=== PATIENT | male | born 1980 | race Caucasian/White ===

== ENCOUNTER 2020-09-01 16:49 | Inpatient (IN) | payer BC, SELFPAY ==
[2020-09-01] MEDS ORDERED: Ketamine 50 MG/ML (10ML VIAL) ONE (17:03)
[2020-09-01] MEDS ORDERED: Boostrix 0.5 ML (Tdap) VIAL ONE (17:03)
[2020-09-01] MEDS ORDERED: Tranexamic Acid 1,000 MG/10 ML VIAL ONE (17:03)
[2020-09-01] MEDS ORDERED: Calcium Chloride 1 GM/10 ML Abboject SYRINGE ONE (17:03)
[2020-09-01] MEDS ORDERED: Fentanyl 100 MCG/2 ML VIAL ONE (17:08)
[2020-09-01] MEDS ORDERED: Norepinephrine 4 MG/4 ML VIAL ONE (17:09)
[2020-09-01] MEDS ORDERED: Phenylephrine 10 MG/ML VIAL ONE (17:09)
[2020-09-01] MEDS ORDERED: Midazolam HCl 5 mg/5 ml Vial ONE (17:09)
[2020-09-01 17:12] LABS: Hemoglobin 11.1 g/dL (14.0-18.0); Mean Corpuscular Hemoglobin 30.5 pg (27.0-31.0); Mean Corpuscular Volume 92.2 fL (78.0-98.0); Mean Platelet Volume 7.3 fL (7.4-10.4); Platelet Count 197 thou/uL (130-400); RBC Distribution Width 12.4 % (11.5-14.5); Red Blood Cell (RBC) Count 3.66 mill/uL (4.70-6.10); White Blood Cell (WBC) Count 21.4 thou/uL (4.8-10.8)
[2020-09-01 17:19] LABS: INR-International Normal Ratio 1.2; PTT 25.7 sec (22.9-36.1); Prothrombin Time 15.6 sec (12.0-14.7)
[2020-09-01] MEDS ORDERED: PHENYLEPHRINE-NS 100 MCG/ML 10 ML SYRINGE ONE (17:22)
[2020-09-01] MEDS ORDERED: Rocuronium Bromide 10 MG/ML (10ML VIAL) ONE (17:22)
[2020-09-01 17:26] LABS: Band 4 % (5-11); Eosinophils 3 % (0-10); Lymphocytes 15 % (21-51); MDiff Complete? YES; Monocytes 7 % (0-10); Neutrophil 71 % (42-75); Platelet Morphology Comment Appears Adequate; RBC Morphology Normal
[2020-09-01 17:32] LABS: ALT (SGPT) 11 U/L (8-55); AST (SGOT) 23 U/L (5-34); Alkaline Phosphatase 39 U/L (40-110); Anion Gap 15 mmol/L (10-20); BUN (Urea Nitrogen) 19 mg/dL (8.9-20.6); Bilirubin, Total 0.4 mg/dL (0.2-1.2); Calc. Creatinine Clearance 0 mL/min (70-130); Carbon Dioxide 19 mmol/L (22-29); Chloride 109 mmol/L (98-107); Globulin 1.8 g/dL (2.4-3.5); Glucose 200 mg/dL (70-105); Potassium 4.2 mmol/L (3.5-5.1); Protein, Total 4.8 g/dL (6.0-8.3); Sodium 139 mmol/L (136-145)
[2020-09-01] MEDS ORDERED: Albumin 5% 500 ML ONE (18:21)
[2020-09-01] MEDS ORDERED: Dextrose 5% in Water 1,000 ML IV PRN (19:40)
[2020-09-01] MEDS ORDERED: Dextrose 50% Abboject 50 ML SYRINGE SLOW IVP PRN (19:40)
[2020-09-01] MEDS ORDERED: Ondansetron PF 4 MG/2 ML Vial IVP PRN ×2 (19:45→19:54)
[2020-09-01] MEDS ORDERED: Ventilator Sedation Protocol 1 EACH FS SCH (20:00)
[2020-09-01 21:00] LABS: Actual Bicarbonate (HCO3a) 21.5 mEq/L (22-28); Analyzer IN Cardio ER; Base Excess (BEa) -4.3 mEq/L (-2.0 to +3.0); CO2 Tension 42.6 mmHg (35.0-45.0); Calcium, Ionized (arterial) 1.15 mmol/L (1.12-1.30); Carboxyhemoglobin (COHb) 0.3 gm% (0.0-3.0); Hemoglobin (Hb) 10.6 g/dL (14.0-18.0); Potassium - ABG Lab 4.35 mmol/L (3.70-5.30); pH, Arterial 7.32 (7.35-7.45)
[2020-09-01 21:04] LABS: Puncture Site Arterial Line
[2020-09-01] MEDS ORDERED: Fentanyl CADD 100 ML ONE (21:08)
[2020-09-01] MEDS: Propofol 1,000 MG/100 ML VIAL IV PRN (21:11)
[2020-09-01] MEDS: Fentanyl CADD 100 ML IV SCH (21:13)
[2020-09-01] MEDS: Lactated Ringer's 1,000 ML IV SCH (21:13)
[2020-09-01] MEDS ORDERED: Fentanyl BOLUS 250 ML IVPB PRN (21:15)
[2020-09-01] MEDS ORDERED: Lorazepam 2 MG/ML VIAL SLOW IVP PRN (21:15)
[2020-09-01] MEDS ORDERED: DISCONTINUE PREVIOUS NARCOTIC PAIN MEDICATIONS AND BENZODIAZEPINES FS SCH (21:15)
[2020-09-01] MEDS ORDERED: Propofol BOLUS 1,000 MG/100 ML VIAL IV PRN (21:15)
[2020-09-01] MEDS ORDERED: Morphine 2 MG/ML VIAL SLOW IVP PRN (21:15)
[2020-09-01 21:26] LABS: Lactic Acid 2.4 mmol/L (0.5-2.2)
[2020-09-01] MEDS ORDERED: CEFAZOLIN 1 GM VIAL SLOW IVP SCH (22:00)
[2020-09-01 22:18] LABS: SARS-CoV-2 NAA Rapid Test Not Detected (NotDetected)
[2020-09-01] MEDS: ceFAZolin 1 GM/D5W 1 GM in Premix Bag 1 BAG IVPB SCH (23:02)
[2020-09-01] MEDS ORDERED: Lactated Ringer's 500 ML IV PRN (23:28)
[2020-09-01] MEDS ORDERED: Sodium Bicarbonate Tab 325 MG TAB PER TUBE PRN (23:45)
[2020-09-01] MEDS ORDERED: Pancrelipase DR 12,000 1 CAP FS PRN (23:45)
[2020-09-02 00:26] LABS: Hemoglobin 10.1 g/dL (14.0-18.0); Mean Corpuscular HGB CONC 34.6 g/dL (32.0-36.0); Mean Corpuscular Hemoglobin 30.6 pg (27.0-31.0); Mean Corpuscular Volume 88.6 fL (78.0-98.0); Mean Platelet Volume 7.7 fL (7.4-10.4); Platelet Count 132 thou/uL (130-400); RBC Distribution Width 13.9 % (11.5-14.5); Red Blood Cell (RBC) Count 3.31 mill/uL (4.70-6.10); White Blood Cell (WBC) Count 5.5 thou/uL (4.8-10.8)
[2020-09-02 04:30] LABS: PTT 27.9 sec (22.9-36.1)
[2020-09-02 04:31] LABS: Prothrombin Time 13.4 sec (12.0-14.7)
[2020-09-02 04:42] LABS: Band 21 % (5-11); Hemoglobin 10.1 g/dL (14.0-18.0); Hypochromia SLIGHT = 6-15 cells (100X) (0-5/hpf); Lymphocytes 9 % (21-51); MDiff Complete? YES; Mean Corpuscular Hemoglobin 30.8 pg (27.0-31.0); Mean Platelet Volume 8.3 fL (7.4-10.4); Monocytes 1 % (0-10); Neutrophil 69 % (42-75); Platelet Count 131 thou/uL (130-400); Platelet Morphology Comment Appears Adequate; RBC Distribution Width 14.2 % (11.5-14.5); Red Blood Cell (RBC) Count 3.26 mill/uL (4.70-6.10)
[2020-09-02 04:45] LABS: Anion Gap 9 mmol/L (10-20); BUN (Urea Nitrogen) 23 mg/dL (8.9-20.6); Calc. Creatinine Clearance 70 mL/min (70-130); Calcium 8.1 mg/dL (7.8-10.44); Carbon Dioxide 24 mmol/L (22-29); Chloride 110 mmol/L (98-107); Glucose 131 mg/dL (70-105); Magnesium 1.6 mg/dL (1.6-2.6); Phosphorus 3.8 mg/dL (2.3-4.7); Sodium 138 mmol/L (136-145)
[2020-09-02] MEDS: ceFAZolin 1 GM/D5W 1 GM in Premix Bag 1 BAG IVPB SCH ×3 (05:02→21:06)
[2020-09-02] MEDS: Lactated Ringer's 1,000 ML IV SCH ×3 (05:02→21:10)
[2020-09-02] MEDS: Propofol 1,000 MG/100 ML VIAL IV PRN (05:02)
[2020-09-02 07:13] LABS: Actual Bicarbonate (HCO3a) 22.8 mEq/L (22-28); Base Excess (BEa) -2.4 mEq/L (-2.0 to +3.0); CO2 Tension 40.7 mmHg (35.0-45.0); Calcium, Ionized (arterial) 1.02 mmol/L (1.12-1.30); Carboxyhemoglobin (COHb) 0.3 gm% (0.0-3.0); Hemoglobin (Hb) 9.6 g/dL (14.0-18.0); O2 Tension (PaO2), arterial 203.9 mmHg (80.0-100.0); Potassium - ABG Lab 4.88 mmol/L (3.70-5.30); Puncture Site Arterial Line; pH, Arterial 7.37 (7.35-7.45)
[2020-09-02 07:15] LABS: ALV-art Gradient 66.075 mmHg (0-20)
[2020-09-02] MEDS ORDERED: Magnesium 2 GM/50 ML 2 GM in Premix Bag 1 BAG IVPB SCH (07:15)
[2020-09-02] MEDS: Famotidine/PF 20 mg/2ml Vial SLOW IVP SCH (08:41)
[2020-09-02] MEDS ORDERED: Calcium Chloride 1 GM/10 ML Abboject SYRINGE IVP SCH (08:45)
[2020-09-02] MEDS ORDERED: Midazolam HCl 2 mg/2 ml Vial SLOW IVP PRN ×2 (09:57→09:59)
[2020-09-02 10:16] LABS: Hemoglobin 9.1 g/dL (14.0-18.0); Mean Corpuscular HGB CONC 33.4 g/dL (32.0-36.0); Mean Corpuscular Hemoglobin 29.6 pg (27.0-31.0); Mean Corpuscular Volume 88.7 fL (78.0-98.0); Mean Platelet Volume 8.1 fL (7.4-10.4); Platelet Count 123 thou/uL (130-400); RBC Distribution Width 14.2 % (11.5-14.5); Red Blood Cell (RBC) Count 3.09 mill/uL (4.70-6.10)
[2020-09-02 10:22] LABS: Actual Bicarbonate (HCO3a) 19.9 mEq/L (22-28); Analyzer IN Cardio OR; Base Excess (BEa) -6.3 mEq/L (-2.0 to +3.0); CO2 Tension 42.8 mmHg (35.0-45.0); Calcium, Ionized (arterial) 0.95 mmol/L (1.12-1.30); Carboxyhemoglobin (COHb) 0.3 gm% (0.0-3.0); Hemoglobin (Hb) 8.2 g/dL (14.0-18.0); O2 Tension (PaO2), arterial 477.2 mmHg (80.0-100.0); Potassium - ABG Lab 4.01 mmol/L (3.70-5.30); pH, Arterial 7.29 (7.35-7.45)
[2020-09-02 10:22] LABS: Analyzer IN Cardio OR; Base Excess (BEa) -6.1 mEq/L (-2.0 to +3.0); CO2 Tension 49.4 mmHg (35.0-45.0); Calcium, Ionized (arterial) 1.05 mmol/L (1.12-1.30); Carboxyhemoglobin (COHb) 0.5 gm% (0.0-3.0); Hemoglobin (Hb) 8.6 g/dL (14.0-18.0); Potassium - ABG Lab 6.12 mmol/L (3.70-5.30)
[2020-09-02 10:23] LABS: Puncture Site Arterial Line
[2020-09-02 10:27] LABS: pH, Arterial 7.25 (7.35-7.45)
[2020-09-02 10:28] LABS: O2 Tension (PaO2), arterial 571.3 mmHg (80.0-100.0); Puncture Site Arterial Line
[2020-09-02] MEDS: Fentanyl CADD 100 ML IV SCH (15:26)
[2020-09-02] MEDS ORDERED: Acetaminophen 650 MG Suppository PR PRN (18:15)
[2020-09-03 04:27] LABS: Hemoglobin 9.4 g/dL (14.0-18.0); Mean Corpuscular Hemoglobin 31.5 pg (27.0-31.0); Mean Platelet Volume 8.2 fL (7.4-10.4); Platelet Count 131 thou/uL (130-400); RBC Distribution Width 13.9 % (11.5-14.5); Red Blood Cell (RBC) Count 2.99 mill/uL (4.70-6.10)
[2020-09-03 05:00] LABS: ALT (SGPT) 12 U/L (8-55); AST (SGOT) 49 U/L (5-34); Albumin 2.7 g/dL (3.5-5.0); Alkaline Phosphatase 37 U/L (40-110); Anion Gap 10 mmol/L (10-20); BUN (Urea Nitrogen) 22 mg/dL (8.9-20.6); Band 1 % (5-11); Bilirubin, Total 1.6 mg/dL (0.2-1.2); Calc. Creatinine Clearance 64 mL/min (70-130); Calcium 7.9 mg/dL (7.8-10.44); Carbon Dioxide 24 mmol/L (22-29); Chloride 105 mmol/L (98-107); Globulin 2.3 g/dL (2.4-3.5); Glucose 109 mg/dL (70-105); Lymphocytes 10 % (21-51); MDiff Complete? YES; Magnesium 1.8 mg/dL (1.6-2.6); Metamyelocyte 1 % (0-0); Monocytes 10 % (0-10); Neutrophil 77 % (42-75); Phosphorus 2.6 mg/dL (2.3-4.7); Platelet Morphology Comment Appears Adequate; Reactive Lymphocytes 1 % (0-10); Sodium 134 mmol/L (136-145)
[2020-09-03] MEDS ORDERED: Morphine 4 MG/ML VIAL SLOW IVP PRN (05:23)
[2020-09-03] MEDS: ceFAZolin 1 GM/D5W 1 GM in Premix Bag 1 BAG IVPB SCH ×3 (05:37→21:44)
[2020-09-03] MEDS ORDERED: Fentanyl CADD 100 ML ONE (06:35)
[2020-09-03] MEDS: Lactated Ringer's 1,000 ML IV SCH ×3 (06:41→21:44)
[2020-09-03] MEDS ORDERED: Magnesium Sulfate 2 GM in Sodium Chloride 0.9% 100 ML IVPB SCH (07:15)
[2020-09-03] MEDS: Famotidine/PF 20 mg/2ml Vial SLOW IVP SCH (08:05)
[2020-09-03] MEDS ORDERED: Fentanyl 100 MCG/2 ML VIAL ONE ×2 (08:46→11:31)
[2020-09-03] MEDS ORDERED: Famotidine/PF 20 mg/2ml Vial ONE (08:46)
[2020-09-03] MEDS ORDERED: Midazolam HCl 2 mg/2 ml Vial ONE (08:46)
[2020-09-03] MEDS ORDERED: SUGAMMADEX SODIUM 500 MG/5 ML VIAL ONE (08:46)
[2020-09-03] MEDS ORDERED: Rocuronium Bromide 10 MG/ML (10ML VIAL) ONE (08:54)
[2020-09-03] MEDS ORDERED: Dexamethasone 20 MG/5 ML VIAL ONE (08:54)
[2020-09-03] MEDS ORDERED: PHENYLEPHRINE-NS 100 MCG/ML 10 ML SYRINGE ONE (08:54)
[2020-09-03] MEDS ORDERED: Metoclopramide HCl 10 MG/2 ML VIAL ONE (08:54)
[2020-09-03] MEDS ORDERED: Ondansetron PF 4 MG/2 ML Vial ONE (08:54)
[2020-09-03] MEDS ORDERED: diphenhydrAMINE 25 MG CAP PO PRN (11:57)
[2020-09-03] MEDS ORDERED: Naloxone HCl 0.4 mg/ml Vial IV PRN (11:57)
[2020-09-03] MEDS ORDERED: diphenhydrAMINE 50 MG/ML VIAL IM PRN (11:57)
[2020-09-03] MEDS ORDERED: Promethazine HCl 25 MG/ML VIAL IM PRN (11:57)
[2020-09-03] MEDS ORDERED: diphenhydrAMINE 50 MG/ML VIAL IVP PRN (11:57)
[2020-09-03] MEDS ORDERED: Communication Order-Pharmacy FS SCH (12:00)
[2020-09-04] MEDS: Lactated Ringer's 1,000 ML IV SCH (05:31)
[2020-09-04] MEDS: ceFAZolin 1 GM/D5W 1 GM in Premix Bag 1 BAG IVPB SCH ×3 (05:31→22:03)
[2020-09-04] MEDS ORDERED: Magnesium Sulfate 2 GM in Sodium Chloride 0.9% 100 ML IVPB SCH (06:45)
[2020-09-04 07:21] LABS: Hemoglobin 8.6 g/dL (14.0-18.0); Mean Corpuscular HGB CONC 32.8 g/dL (32.0-36.0); Mean Corpuscular Hemoglobin 30.3 pg (27.0-31.0); Mean Corpuscular Volume 92.4 fL (78.0-98.0); Mean Platelet Volume 8.9 fL (7.4-10.4); Platelet Count 175 thou/uL (130-400); RBC Distribution Width 13.9 % (11.5-14.5); Red Blood Cell (RBC) Count 2.82 mill/uL (4.70-6.10); White Blood Cell (WBC) Count 13.5 thou/uL (4.8-10.8)
[2020-09-04 07:25] LABS: Phosphorus 2.3 mg/dL (2.3-4.7)
[2020-09-04 07:34] LABS: Anion Gap 11 mmol/L (10-20); BUN (Urea Nitrogen) 24 mg/dL (8.9-20.6); Calc. Creatinine Clearance 60 mL/min (70-130); Calcium 7.8 mg/dL (7.8-10.44); Carbon Dioxide 23 mmol/L (22-29); Chloride 104 mmol/L (98-107); Glucose 131 mg/dL (70-105); Magnesium 2.2 mg/dL (1.6-2.6); Potassium 5.1 mmol/L (3.5-5.1); Sodium 133 mmol/L (136-145)
[2020-09-04 07:46] LABS: Band 33 % (5-11); Lymphocytes 3 % (21-51); MDiff Complete? YES; Monocytes 7 % (0-10); Neutrophil 57 % (42-75); Platelet Morphology Comment Appears Adequate; Polychromasia SLIGHT = 2-3 cells (100X) (0-2/hpf)
[2020-09-04] MEDS: Famotidine 20 MG TAB PER TUBE SCH (07:58)
[2020-09-04] MEDS ORDERED: Sodium Bicarbonate 150 MEQ in Dextrose 5% in Water 1,000 ML IV SCH (12:45)
[2020-09-05] MEDS: HYDROmorphone 10 mg/100 ml CADD IVPB PRN (02:56)
[2020-09-05 06:18] LABS: Band 21 % (5-11); Hemoglobin 7.6 g/dL (14.0-18.0); Lymphocytes 5 % (21-51); MDiff Complete? YES; Mean Corpuscular HGB CONC 31.8 g/dL (32.0-36.0); Mean Corpuscular Hemoglobin 29.3 pg (27.0-31.0); Mean Corpuscular Volume 92.2 fL (78.0-98.0); Mean Platelet Volume 8.4 fL (7.4-10.4); Monocytes 6 % (0-10); Neutrophil 68 % (42-75); Nucleated RBC 1 % (0); Platelet Count 205 thou/uL (130-400); Platelet Morphology Comment Appears Adequate; RBC Distribution Width 13.9 % (11.5-14.5); White Blood Cell (WBC) Count 12.7 thou/uL (4.8-10.8)
[2020-09-05 06:28] LABS: Anion Gap 12 mmol/L (10-20); BUN (Urea Nitrogen) 27 mg/dL (8.9-20.6); Calc. Creatinine Clearance 68 mL/min (70-130); Calcium 7.7 mg/dL (7.8-10.44); Carbon Dioxide 27 mmol/L (22-29); Chloride 102 mmol/L (98-107); Glucose 116 mg/dL (70-105); Magnesium 2.5 mg/dL (1.6-2.6); Phosphorus 2.4 mg/dL (2.3-4.7); Potassium 4.4 mmol/L (3.5-5.1); Sodium 137 mmol/L (136-145)
[2020-09-05] MEDS ORDERED: Lactated Ringer's 1,000 ML IV SCH ×2 (07:30→07:45)
[2020-09-05] MEDS ORDERED: Sodium Chloride 0.9% 1,000 ML IV SCH (07:45)
[2020-09-05] MEDS: Sodium Chloride 0.9% 1,000 ML IV SCH ×2 (08:16→18:16)
[2020-09-05] MEDS: Famotidine 20 MG TAB PER TUBE SCH (08:16)
[2020-09-06] MEDS: Sodium Chloride 0.9% 1,000 ML IV SCH ×2 (03:46→14:03)
[2020-09-06 06:20] LABS: Anion Gap 10 mmol/L (10-20); BUN (Urea Nitrogen) 34 mg/dL (8.9-20.6); Calc. Creatinine Clearance 81 mL/min (70-130); Calcium 8.2 mg/dL (7.8-10.44); Carbon Dioxide 29 mmol/L (22-29); Chloride 105 mmol/L (98-107); Glucose 121 mg/dL (70-105); Magnesium 2.5 mg/dL (1.6-2.6); Phosphorus 2.3 mg/dL (2.3-4.7); Potassium 3.7 mmol/L (3.5-5.1); Sodium 140 mmol/L (136-145)
[2020-09-06 07:25] LABS: Band 22 % (5-11); Hemoglobin 7.9 g/dL (14.0-18.0); Lymphocytes 10 % (21-51); MDiff Complete? YES; Mean Corpuscular HGB CONC 31.2 g/dL (32.0-36.0); Mean Corpuscular Volume 93.1 fL (78.0-98.0); Mean Platelet Volume 7.6 fL (7.4-10.4); Monocytes 7 % (0-10); Neutrophil 61 % (42-75); Platelet Count 255 thou/uL (130-400); RBC Distribution Width 13.8 % (11.5-14.5); Red Blood Cell (RBC) Count 2.73 mill/uL (4.70-6.10); White Blood Cell (WBC) Count 13.8 thou/uL (4.8-10.8)
[2020-09-06] MEDS: Famotidine 20 MG TAB PER TUBE SCH (08:07)
[2020-09-06] MEDS: HYDROmorphone 10 mg/100 ml CADD IVPB PRN (08:08)
[2020-09-06] MEDS ORDERED: Pantoprazole 40 MG VIAL IVP SCH (10:15)
[2020-09-06] MEDS: Ondansetron PF 4 MG/2 ML Vial IVP PRN ×2 (11:18→20:09)
[2020-09-06] MEDS: Acetaminophen 325 MG TAB PO SCH ×3 (12:12→23:29)
[2020-09-06] MEDS: traMADol HCl 50 MG TAB PO SCH ×3 (12:13→23:28)
[2020-09-06 16:39] LABS: Lipase-Fluid 31101 U/L (.)
[2020-09-06] MEDS ORDERED: Potassium Chloride 10 MEQ in Dextrose 5%-Lactated Ringers 1,000 ML IV SCH (18:30)
[2020-09-06] MEDS: Cyclobenzaprine 10 MG TAB PO PRN (20:08)
[2020-09-06] MEDS: Pantoprazole 40 MG VIAL IVP SCH (20:09)
[2020-09-07] MEDS: traMADol HCl 50 MG TAB PO SCH ×4 (05:30→23:47)
[2020-09-07] MEDS: Acetaminophen 325 MG TAB PO SCH ×4 (05:30→23:46)
[2020-09-07] MEDS: Pantoprazole 40 MG VIAL IVP SCH ×2 (07:52→21:52)
[2020-09-07] MEDS ORDERED: Pantoprazole 40 MG VIAL IVP SCH (09:00)
[2020-09-07] MEDS: Ondansetron PF 4 MG/2 ML Vial IVP PRN (21:52)
[2020-09-07] MEDS: Cyclobenzaprine 10 MG TAB PO PRN (21:52)
[2020-09-08] MEDS: traMADol HCl 50 MG TAB PO SCH ×4 (05:33→23:18)
[2020-09-08] MEDS: Acetaminophen 325 MG TAB PO SCH ×4 (05:37→23:17)
[2020-09-08] MEDS: Pantoprazole 40 MG VIAL IVP SCH ×2 (08:45→20:39)
[2020-09-08 11:45] LABS: Bacteria/HPF None Seen HPF (None Seen); Bilirubin Negative (Negative); Blood, Urine 1+ (Negative); Clarity Clear (Clear); Glucose, Urine (Dipstick) Normal (Negative); Ketone, Urine 10 mg/dL (Negative); Leukocyte Negative Leu/uL (Negative); Nitrite Negative (Negative); Protein, Urine (Dipstick) 100 mg/dL (Neg-Trace); RBC/HPF 0-3 HPF (0-3); Specific Gravity, Urine 1.016 (1.002-1.036); Squamous Epithelial None Seen HPF (0-3); Urobilinogen 6 mg/dL (Less than 2); WBC/HPF 0-3 HPF (0-3)
[2020-09-08 11:52] LABS: Urine Culture Reflex No No
[2020-09-08] MEDS ORDERED: Senokot 8.6 MG TAB PO PRN (12:15)
[2020-09-09] MEDS: Acetaminophen 325 MG TAB PO SCH ×4 (05:24→23:49)
[2020-09-09] MEDS: traMADol HCl 50 MG TAB PO SCH ×4 (05:25→23:50)
[2020-09-09 06:01] LABS: Anion Gap 12 mmol/L (10-20); BUN (Urea Nitrogen) 22 mg/dL (8.9-20.6); Calc. Creatinine Clearance 78 mL/min (70-130); Calcium 7.5 mg/dL (7.8-10.44); Carbon Dioxide 24 mmol/L (22-29); Chloride 97 mmol/L (98-107); Glucose 99 mg/dL (70-105); Magnesium 1.8 mg/dL (1.6-2.6); Phosphorus 2.8 mg/dL (2.3-4.7); Sodium 129 mmol/L (136-145)
[2020-09-09] MEDS ORDERED: Magnesium 2 GM/50 ML 2 GM in Premix Bag 1 BAG IVPB SCH (08:00)
[2020-09-09] MEDS: Pantoprazole 40 MG VIAL IVP SCH ×2 (08:38→20:32)
[2020-09-09] MEDS ORDERED: Sodium Chloride 0.9% 1,000 ML IV SCH (08:45)
[2020-09-10] MEDS: Acetaminophen 325 MG TAB PO SCH ×4 (05:41→23:29)
[2020-09-10] MEDS: traMADol HCl 50 MG TAB PO SCH ×4 (05:42→23:29)
[2020-09-10 06:21] LABS: ALT (SGPT) 10 U/L (8-55); AST (SGOT) 45 U/L (5-34); Albumin 2.2 g/dL (3.5-5.0); Alkaline Phosphatase 245 U/L (40-110); Anion Gap 13 mmol/L (10-20); BUN (Urea Nitrogen) 20 mg/dL (8.9-20.6); Bilirubin, Total 1.5 mg/dL (0.2-1.2); Calc. Creatinine Clearance 79 mL/min (70-130); Calcium 7.6 mg/dL (7.8-10.44); Carbon Dioxide 23 mmol/L (22-29); Chloride 96 mmol/L (98-107); Glucose 108 mg/dL (70-105); Potassium 3.8 mmol/L (3.5-5.1); Protein, Total 5.2 g/dL (6.0-8.3); Sodium 128 mmol/L (136-145)
[2020-09-10] MEDS: Pantoprazole 40 MG VIAL IVP SCH ×2 (09:25→20:04)
[2020-09-10 10:07] LABS: Band 3 % (5-11); Hemoglobin 6.7 g/dL (14.0-18.0); Lymphocytes 5 % (21-51); MDiff Complete? YES; Mean Corpuscular HGB CONC 31.8 g/dL (32.0-36.0); Mean Corpuscular Hemoglobin 29.3 pg (27.0-31.0); Mean Platelet Volume 7.3 fL (7.4-10.4); Monocytes 10 % (0-10); Neutrophil 82 % (42-75); Platelet Count 615 thou/uL (130-400); Platelet Morphology Comment Appears Increased; Polychromasia SLIGHT = 2-3 cells (100X) (0-2/hpf); RBC Distribution Width 13.7 % (11.5-14.5); Red Blood Cell (RBC) Count 2.27 mill/uL (4.70-6.10); White Blood Cell (WBC) Count 22.3 thou/uL (4.8-10.8)
[2020-09-10] MEDS: traMADol HCl 50 MG TAB PO PRN (18:48)
[2020-09-10] MEDS: Cyclobenzaprine 10 MG TAB PO PRN (20:12)
[2020-09-11] MEDS: traMADol HCl 50 MG TAB PO SCH ×4 (05:37→23:32)
[2020-09-11] MEDS: Acetaminophen 325 MG TAB PO SCH ×4 (05:37→23:31)
[2020-09-11 08:36] LABS: Hemoglobin 6.4 g/dL (14.0-18.0); Mean Corpuscular HGB CONC 31.9 g/dL (32.0-36.0); Mean Corpuscular Hemoglobin 29.2 pg (27.0-31.0); Mean Corpuscular Volume 91.6 fL (78.0-98.0); Mean Platelet Volume 7.2 fL (7.4-10.4); Platelet Count 762 thou/uL (130-400); RBC Distribution Width 14.1 % (11.5-14.5); White Blood Cell (WBC) Count 22.9 thou/uL (4.8-10.8)
[2020-09-11] MEDS: Pantoprazole 40 MG VIAL IVP SCH ×2 (08:38→20:47)
[2020-09-11 08:51] LABS: Anion Gap 12 mmol/L (10-20); BUN (Urea Nitrogen) 17 mg/dL (8.9-20.6); Calc. Creatinine Clearance 82 mL/min (70-130); Calcium 7.8 mg/dL (7.8-10.44); Carbon Dioxide 26 mmol/L (22-29); Chloride 95 mmol/L (98-107); Glucose 96 mg/dL (70-105); Magnesium 1.9 mg/dL (1.6-2.6); Phosphorus 3.4 mg/dL (2.3-4.7); Sodium 129 mmol/L (136-145)
[2020-09-11] MEDS ORDERED: Acetylcysteine 20% 200 MG/ML 30 ML VIAL PO SCH ×2 (09:30→12:00)
[2020-09-11] MEDS ORDERED: Sodium Bicarb 50 MEQ/50 ML Abboject 8.4% SYRINGE IVP SCH (09:30)
[2020-09-11] MEDS: Ascorbic Acid 500 mg Chewable Tablet PO SCH ×2 (09:48→20:47)
[2020-09-11] MEDS: Ferrous Sulfate 325 MG TAB PO SCH ×2 (09:48→20:47)
[2020-09-11] MEDS ORDERED: Sodium Bicarbonate 150 MEQ in Dextrose 5% in Water 1,000 ML IV SCH (12:00)
[2020-09-11] MEDS: MEROPENEM 1 GM/50 ML 1 GM in Premix Bag 1 BAG IVPB SCH ×2 (13:27→20:47)
[2020-09-11] MEDS: traMADol HCl 50 MG TAB PO PRN (20:55)
[2020-09-11 21:08] LABS: Lipase-Fluid Greater than 60600 U/L (.)
[2020-09-11] MEDS: Cyclobenzaprine 10 MG TAB PO PRN (21:36)
[2020-09-12 05:37] LABS: Anion Gap 13 mmol/L (10-20); BUN (Urea Nitrogen) 15 mg/dL (8.9-20.6); Calc. Creatinine Clearance 80 mL/min (70-130); Calcium 7.7 mg/dL (7.8-10.44); Carbon Dioxide 25 mmol/L (22-29); Chloride 97 mmol/L (98-107); Glucose 115 mg/dL (70-105); Potassium 4.2 mmol/L (3.5-5.1); Sodium 131 mmol/L (136-145)
[2020-09-12] MEDS: traMADol HCl 50 MG TAB PO SCH ×4 (06:14→23:20)
[2020-09-12] MEDS: Acetaminophen 325 MG TAB PO SCH ×5 (06:15→23:21)
[2020-09-12] MEDS: MEROPENEM 1 GM/50 ML 1 GM in Premix Bag 1 BAG IVPB SCH ×3 (06:15→21:08)
[2020-09-12 06:28] LABS: #Eosinphils 0.2 thou/uL (0.0-0.7); #Lymphocytes 1.6 thou/uL (1.20-3.40); #Monocytes 2.4 thou/uL (0.11-0.59); #Neutrophils 19.1 thou/uL (1.40-6.50); %Basophils 0.2 % (0.0-1.0); %Lymphocytes 6.9 % (21.0-51.0); %Monocytes 10.2 % (0.0-10.0); %Neutrophils 81.7 % (42.0-75.0); Hemoglobin 7.4 g/dL (14.0-18.0); Mean Corpuscular HGB CONC 32.4 g/dL (32.0-36.0); Mean Corpuscular Hemoglobin 30.1 pg (27.0-31.0); Mean Corpuscular Volume 92.9 fL (78.0-98.0); Mean Platelet Volume 7.1 fL (7.4-10.4); Platelet Count 945 thou/uL (130-400); Platelet Morphology Comment Appears Increased; Red Blood Cell (RBC) Count 2.47 mill/uL (4.70-6.10); White Blood Cell (WBC) Count 23.3 thou/uL (4.8-10.8)
[2020-09-12] MEDS ORDERED: Acetylcysteine 20% 200 MG/ML 30 ML VIAL PO SCH ×2 (09:00→15:00)
[2020-09-12] MEDS ORDERED: Sodium Bicarb 50 MEQ/50 ML Abboject 8.4% SYRINGE IVP SCH (09:00)
[2020-09-12] MEDS: Pantoprazole 40 MG VIAL IVP SCH ×2 (09:40→21:08)
[2020-09-12] MEDS: Ondansetron PF 4 MG/2 ML Vial IVP PRN (09:41)
[2020-09-12] MEDS: Ferrous Sulfate 325 MG TAB PO SCH ×2 (09:41→21:07)
[2020-09-12] MEDS: Ascorbic Acid 500 mg Chewable Tablet PO SCH ×2 (09:41→21:07)
[2020-09-12] MEDS ORDERED: Lidocaine 1% (PF) 30 ML VIAL ONE (12:59)
[2020-09-12] MEDS ORDERED: Morphine 4 MG/ML VIAL SLOW IVP SCH (13:30)
[2020-09-12] MEDS ORDERED: Lidocaine 1% (PF) 30 ML VIAL SC SCH (13:30)
[2020-09-12] MEDS ORDERED: Lorazepam 2 MG/ML VIAL SLOW IVP SCH (13:30)
[2020-09-12] MEDS ORDERED: Iopamidol 370 76% 50 ML VIAL FS ONE (14:49)
[2020-09-12] MEDS ORDERED: Iopamidol-370 76% 500 ML 1 ML ONE (14:49)
[2020-09-12] MEDS ORDERED: Sodium Bicarbonate 150 MEQ in Dextrose 5% in Water 1,000 ML IV SCH (15:00)
[2020-09-12] MEDS ORDERED: CEFAZOLIN 2 GM in Premix Bag 1 BAG IVPB SCH (22:00)
[2020-09-12] MEDS ORDERED: CEFAZOLIN 1 GM VIAL SLOW IVP SCH (22:00)
[2020-09-12] MEDS: CEFAZOLIN 2 GM in Premix Bag 1 BAG IVPB SCH (23:22)
[2020-09-13] MEDS: traMADol HCl 50 MG TAB PO PRN ×2 (05:06→12:22)
[2020-09-13] MEDS: traMADol HCl 50 MG TAB PO SCH ×4 (05:06→22:55)
[2020-09-13] MEDS: Cyclobenzaprine 10 MG TAB PO PRN (05:07)
[2020-09-13] MEDS: Acetaminophen 325 MG TAB PO SCH ×4 (05:07→22:55)
[2020-09-13] MEDS: MEROPENEM 1 GM/50 ML 1 GM in Premix Bag 1 BAG IVPB SCH ×3 (05:08→22:55)
[2020-09-13 07:14] LABS: #Basophils 0.1 thou/uL (0.0-0.2); #Lymphocytes 1.9 thou/uL (1.20-3.40); #Monocytes 2.3 thou/uL (0.11-0.59); #Neutrophils 17.7 thou/uL (1.40-6.50); %Basophils 0.3 % (0.0-1.0); %Eosinophils 0.2 % (0.0-10.0); %Lymphocytes 8.6 % (21.0-51.0); %Monocytes 10.5 % (0.0-10.0); %Neutrophils 80.4 % (42.0-75.0); Hemoglobin 7.7 g/dL (14.0-18.0); Mean Corpuscular HGB CONC 32.7 g/dL (32.0-36.0); Mean Corpuscular Hemoglobin 29.7 pg (27.0-31.0); Mean Platelet Volume 6.6 fL (7.4-10.4); Platelet Count 1028 thou/uL (130-400); RBC Distribution Width 13.9 % (11.5-14.5); Red Blood Cell (RBC) Count 2.58 mill/uL (4.70-6.10)
[2020-09-13 07:27] LABS: Anion Gap 13 mmol/L (10-20); BUN (Urea Nitrogen) 17 mg/dL (8.9-20.6); Calc. Creatinine Clearance 68 mL/min (70-130); Calcium 7.6 mg/dL (7.8-10.44); Carbon Dioxide 28 mmol/L (22-29); Chloride 93 mmol/L (98-107); Glucose 97 mg/dL (70-105); Magnesium 1.9 mg/dL (1.6-2.6); Potassium 4.2 mmol/L (3.5-5.1); Sodium 130 mmol/L (136-145)
[2020-09-13] MEDS: CEFAZOLIN 2 GM in Premix Bag 1 BAG IVPB SCH (08:12)
[2020-09-13] MEDS: Pantoprazole 40 MG VIAL IVP SCH ×2 (08:12→19:50)
[2020-09-13] MEDS: Ascorbic Acid 500 mg Chewable Tablet PO SCH ×2 (08:12→19:50)
[2020-09-13] MEDS: Ferrous Sulfate 325 MG TAB PO SCH ×2 (08:12→19:50)
[2020-09-13] MEDS ORDERED: Aspirin 325 MG TAB PO SCH ×2 (09:00)
[2020-09-13] MEDS: Heparin 5,000 UNITS/ML VIAL SC SCH ×3 (10:52→19:50)
[2020-09-13] MEDS: Morphine 4 MG/ML VIAL SLOW IVP PRN (10:52)
[2020-09-13] MEDS: Sodium Chloride 0.9% 1,000 ML IV SCH ×3 (10:54→19:45)
[2020-09-14 05:58] LABS: #Eosinphils 0.3 thou/uL (0.0-0.7); %Basophils 0.1 % (0.0-1.0); %Eosinophils 1.3 % (0.0-10.0); %Lymphocytes 9.7 % (21.0-51.0); %Monocytes 9.7 % (0.0-10.0); %Neutrophils 79.2 % (42.0-75.0); Hemoglobin 7.4 g/dL (14.0-18.0); Mean Corpuscular HGB CONC 32.6 g/dL (32.0-36.0); Mean Corpuscular Volume 91.9 fL (78.0-98.0); Mean Platelet Volume 6.7 fL (7.4-10.4); Platelet Count 1153 thou/uL (130-400); RBC Distribution Width 13.9 % (11.5-14.5); Red Blood Cell (RBC) Count 2.45 mill/uL (4.70-6.10); White Blood Cell (WBC) Count 20.2 thou/uL (4.8-10.8)
[2020-09-14] MEDS: MEROPENEM 1 GM/50 ML 1 GM in Premix Bag 1 BAG IVPB SCH ×3 (06:05→23:01)
[2020-09-14] MEDS: Acetaminophen 325 MG TAB PO SCH ×4 (06:06→23:01)
[2020-09-14] MEDS: traMADol HCl 50 MG TAB PO SCH ×4 (06:06→23:01)
[2020-09-14 06:13] LABS: Anion Gap 15 mmol/L (10-20); BUN (Urea Nitrogen) 20 mg/dL (8.9-20.6); Calc. Creatinine Clearance 73 mL/min (70-130); Calcium 7.5 mg/dL (7.8-10.44); Carbon Dioxide 24 mmol/L (22-29); Chloride 98 mmol/L (98-107); Glucose 100 mg/dL (70-105); Phosphorus 3.8 mg/dL (2.3-4.7); Potassium 4.7 mmol/L (3.5-5.1); Sodium 132 mmol/L (136-145)
[2020-09-14] MEDS: Sodium Chloride 0.9% 1,000 ML IV SCH ×3 (06:48→18:15)
[2020-09-14] MEDS: traMADol HCl 50 MG TAB PO PRN (09:45)
[2020-09-14] MEDS: Ascorbic Acid 500 mg Chewable Tablet PO SCH ×2 (09:46→20:09)
[2020-09-14] MEDS: Ferrous Sulfate 325 MG TAB PO SCH ×2 (09:46→20:09)
[2020-09-14] MEDS: Heparin 5,000 UNITS/ML VIAL SC SCH ×3 (09:46→20:09)
[2020-09-14] MEDS: Pantoprazole 40 MG VIAL IVP SCH ×2 (09:46→20:10)
[2020-09-14] MEDS: Cyclobenzaprine 10 MG TAB PO PRN (20:15)
[2020-09-15] MEDS: Sodium Chloride 0.9% 1,000 ML IV SCH ×4 (05:44→20:12)
[2020-09-15] MEDS: Acetaminophen 325 MG TAB PO SCH ×4 (05:49→22:57)
[2020-09-15] MEDS: traMADol HCl 50 MG TAB PO SCH ×4 (05:49→22:57)
[2020-09-15] MEDS: MEROPENEM 1 GM/50 ML 1 GM in Premix Bag 1 BAG IVPB SCH ×3 (05:49→22:56)
[2020-09-15 05:52] LABS: Hemoglobin 6.9 g/dL (14.0-18.0); Mean Corpuscular HGB CONC 32.2 g/dL (32.0-36.0); Mean Corpuscular Hemoglobin 29.5 pg (27.0-31.0); Mean Corpuscular Volume 91.5 fL (78.0-98.0); Mean Platelet Volume 6.5 fL (7.4-10.4); Platelet Count 1244 thou/uL (130-400); Red Blood Cell (RBC) Count 2.34 mill/uL (4.70-6.10); White Blood Cell (WBC) Count 18.6 thou/uL (4.8-10.8)
[2020-09-15 06:11] LABS: Anion Gap 13 mmol/L (10-20); BUN (Urea Nitrogen) 18 mg/dL (8.9-20.6); Calc. Creatinine Clearance 76 mL/min (70-130); Calcium 7.7 mg/dL (7.8-10.44); Carbon Dioxide 23 mmol/L (22-29); Chloride 101 mmol/L (98-107); Glucose 97 mg/dL (70-105); Phosphorus 3.2 mg/dL (2.3-4.7); Potassium 5.1 mmol/L (3.5-5.1); Sodium 132 mmol/L (136-145)
[2020-09-15 06:18] LABS: Band 5 % (5-11); Hypochromia SLIGHT = 6-15 cells (100X) (0-5/hpf); Lymphocytes 12 % (21-51); MDiff Complete? YES; Monocytes 7 % (0-10); Neutrophil 76 % (42-75); Platelet Morphology Comment Appears Increased
[2020-09-15] MEDS: Ferrous Sulfate 325 MG TAB PO SCH ×2 (08:24→20:10)
[2020-09-15] MEDS: Ascorbic Acid 500 mg Chewable Tablet PO SCH ×2 (08:24→20:10)
[2020-09-15] MEDS: Heparin 5,000 UNITS/ML VIAL SC SCH (08:24)
[2020-09-15] MEDS: Pantoprazole 40 MG VIAL IVP SCH ×2 (08:24→20:13)
[2020-09-15] MEDS ORDERED: Sodium Phosphate 15 MMOL in Sodium Chloride 0.9% 250 ML 250 ML IVPB SCH (08:30)
[2020-09-15] MEDS: traMADol HCl 50 MG TAB PO PRN (08:44)
[2020-09-15] MEDS: Morphine 4 MG/ML VIAL SLOW IVP PRN (11:55)
[2020-09-15] MEDS ORDERED: Clopidogrel Bisulfate 75 MG TAB PO SCH (12:00)
[2020-09-15] MEDS: Octreotide Acetate 100 MCG in Sodium Chloride 0.9% 50 ML IVPB SCH ×2 (12:59→20:09)
[2020-09-15] MEDS: Cyclobenzaprine 10 MG TAB PO PRN (20:12)
[2020-09-16] MEDS: MEROPENEM 1 GM/50 ML 1 GM in Premix Bag 1 BAG IVPB SCH ×3 (04:58→21:01)
[2020-09-16] MEDS: Octreotide Acetate 100 MCG in Sodium Chloride 0.9% 50 ML IVPB SCH ×3 (04:58→21:00)
[2020-09-16] MEDS: Acetaminophen 325 MG TAB PO SCH ×4 (04:58→23:54)
[2020-09-16] MEDS: traMADol HCl 50 MG TAB PO SCH ×4 (04:58→23:53)
[2020-09-16] MEDS: Sodium Chloride 0.9% 1,000 ML IV SCH ×2 (05:20→10:56)
[2020-09-16 06:25] LABS: Anion Gap 11 mmol/L (10-20); BUN (Urea Nitrogen) 16 mg/dL (8.9-20.6); Calc. Creatinine Clearance 81 mL/min (70-130); Calcium 7.7 mg/dL (7.8-10.44); Carbon Dioxide 23 mmol/L (22-29); Chloride 99 mmol/L (98-107); Glucose 104 mg/dL (70-105); Magnesium 1.9 mg/dL (1.6-2.6); Phosphorus 3.3 mg/dL (2.3-4.7); Potassium 4.8 mmol/L (3.5-5.1); Sodium 128 mmol/L (136-145)
[2020-09-16 06:28] LABS: Mean Corpuscular HGB CONC 33.6 g/dL (32.0-36.0); Mean Corpuscular Hemoglobin 30.5 pg (27.0-31.0); Mean Corpuscular Volume 90.6 fL (78.0-98.0); Mean Platelet Volume 6.4 fL (7.4-10.4); Platelet Count 1271 thou/uL (130-400); Red Blood Cell (RBC) Count 2.63 mill/uL (4.70-6.10); White Blood Cell (WBC) Count 16.1 thou/uL (4.8-10.8)
[2020-09-16] MEDS: Saccharomyces boulardii 250 MG CAP PO SCH (08:25)
[2020-09-16] MEDS: Ascorbic Acid 500 mg Chewable Tablet PO SCH ×2 (08:25→21:01)
[2020-09-16] MEDS: Ferrous Sulfate 325 MG TAB PO SCH ×2 (08:25→21:01)
[2020-09-16] MEDS: Pantoprazole 40 MG VIAL IVP SCH ×2 (08:26→21:01)
[2020-09-16] MEDS: Clopidogrel Bisulfate 75 MG TAB PO SCH (08:26)
[2020-09-16] MEDS: traMADol HCl 50 MG TAB PO PRN (08:41)
[2020-09-16 08:54] LABS: Band 13 % (5-11); Hypochromia SLIGHT = 6-15 cells (100X) (0-5/hpf); Lymphocytes 4 % (21-51); Metamyelocyte 1 % (0-0); Monocytes 8 % (0-10); Myelocyte 2 % (0-0); Neutrophil 70 % (42-75); Platelet Morphology Comment Appears Increased; Polychromasia SLIGHT = 2-3 cells (100X) (0-2/hpf); Reactive Lymphocytes 2 % (0-10)
[2020-09-16 08:55] LABS: MDiff Complete? YES
[2020-09-16] MEDS ORDERED: Sodium Phosphate 30 MMOL in Sodium Chloride 0.9% 250 ML 250 ML IVPB SCH (09:00)
[2020-09-16] MEDS: Melatonin 3 MG TAB PO PRN (21:01)
[2020-09-17] MEDS: Acetaminophen 325 MG TAB PO SCH ×4 (05:07→23:16)
[2020-09-17] MEDS: traMADol HCl 50 MG TAB PO SCH ×4 (05:08→23:15)
[2020-09-17] MEDS: MEROPENEM 1 GM/50 ML 1 GM in Premix Bag 1 BAG IVPB SCH ×3 (05:08→20:53)
[2020-09-17] MEDS: Octreotide Acetate 100 MCG in Sodium Chloride 0.9% 50 ML IVPB SCH (05:23)
[2020-09-17 06:07] LABS: #Eosinphils 0.2 thou/uL (0.0-0.7); #Lymphocytes 1.5 thou/uL (1.20-3.40); #Monocytes 1.3 thou/uL (0.11-0.59); #Neutrophils 11.5 thou/uL (1.40-6.50); %Basophils 0.2 % (0.0-1.0); %Eosinophils 1.5 % (0.0-10.0); %Lymphocytes 10.1 % (21.0-51.0); %Monocytes 9.1 % (0.0-10.0); %Neutrophils 79.1 % (42.0-75.0); Hemoglobin 8.2 g/dL (14.0-18.0); Mean Corpuscular HGB CONC 32.4 g/dL (32.0-36.0); Mean Corpuscular Hemoglobin 29.3 pg (27.0-31.0); Mean Corpuscular Volume 90.6 fL (78.0-98.0); Mean Platelet Volume 6.1 fL (7.4-10.4); Platelet Count 1226 thou/uL (130-400); RBC Distribution Width 14.1 % (11.5-14.5); Red Blood Cell (RBC) Count 2.79 mill/uL (4.70-6.10); White Blood Cell (WBC) Count 14.5 thou/uL (4.8-10.8)
[2020-09-17 06:10] LABS: Anion Gap 12 mmol/L (10-20); BUN (Urea Nitrogen) 17 mg/dL (8.9-20.6); Calc. Creatinine Clearance 81 mL/min (70-130); Calcium 7.6 mg/dL (7.8-10.44); Carbon Dioxide 23 mmol/L (22-29); Chloride 98 mmol/L (98-107); Glucose 109 mg/dL (70-105); Phosphorus 3.7 mg/dL (2.3-4.7); Potassium 4.4 mmol/L (3.5-5.1); Sodium 129 mmol/L (136-145)
[2020-09-17] MEDS: Pantoprazole 40 MG VIAL IVP SCH ×2 (08:49→20:53)
[2020-09-17] MEDS: Saccharomyces boulardii 250 MG CAP PO SCH (08:49)
[2020-09-17] MEDS: Ferrous Sulfate 325 MG TAB PO SCH ×2 (08:49→20:53)
[2020-09-17] MEDS: Clopidogrel Bisulfate 75 MG TAB PO SCH (08:49)
[2020-09-17] MEDS: Ascorbic Acid 500 mg Chewable Tablet PO SCH ×2 (08:49→20:53)
[2020-09-17] MEDS: Octreotide Acetate 100 MCG/ML VIAL SC SCH ×3 (09:57→20:53)
[2020-09-17] MEDS: Melatonin 3 MG TAB PO PRN (20:53)
[2020-09-18] MEDS: Acetaminophen 325 MG TAB PO SCH ×2 (05:04→12:23)
[2020-09-18] MEDS: MEROPENEM 1 GM/50 ML 1 GM in Premix Bag 1 BAG IVPB SCH ×3 (05:05→21:36)
[2020-09-18] MEDS: traMADol HCl 50 MG TAB PO SCH ×2 (05:05→12:24)
[2020-09-18 06:23] LABS: #Basophils 0.1 thou/uL (0.0-0.2); #Eosinphils 0.1 thou/uL (0.0-0.7); #Lymphocytes 1.6 thou/uL (1.20-3.40); #Monocytes 1.1 thou/uL (0.11-0.59); #Neutrophils 11.4 thou/uL (1.40-6.50); %Basophils 0.4 % (0.0-1.0); %Lymphocytes 11.4 % (21.0-51.0); %Monocytes 7.9 % (0.0-10.0); %Neutrophils 79.3 % (42.0-75.0); Hemoglobin 7.9 g/dL (14.0-18.0); Mean Corpuscular HGB CONC 32.2 g/dL (32.0-36.0); Platelet Count 1116 thou/uL (130-400); RBC Distribution Width 13.9 % (11.5-14.5); Red Blood Cell (RBC) Count 2.73 mill/uL (4.70-6.10); White Blood Cell (WBC) Count 14.4 thou/uL (4.8-10.8)
[2020-09-18 06:46] LABS: Anion Gap 13 mmol/L (10-20); Calc. Creatinine Clearance 79 mL/min (70-130); Calcium 7.6 mg/dL (7.8-10.44); Carbon Dioxide 23 mmol/L (22-29); Chloride 98 mmol/L (98-107); Glucose 111 mg/dL (70-105); Phosphorus 3.4 mg/dL (2.3-4.7); Potassium 4.3 mmol/L (3.5-5.1); Sodium 130 mmol/L (136-145)
[2020-09-18 06:54] LABS: BUN (Urea Nitrogen) 23 mg/dL (8.9-20.6)
[2020-09-18] MEDS: Clopidogrel Bisulfate 75 MG TAB PO SCH (09:16)
[2020-09-18] MEDS: Saccharomyces boulardii 250 MG CAP PO SCH (09:16)
[2020-09-18] MEDS: Ascorbic Acid 500 mg Chewable Tablet PO SCH ×3 (09:16→20:48)
[2020-09-18] MEDS: Pantoprazole 40 MG VIAL IVP SCH ×2 (09:16→20:42)
[2020-09-18] MEDS: Ferrous Sulfate 325 MG TAB PO SCH ×3 (09:17→20:49)
[2020-09-18] MEDS: Octreotide Acetate 100 MCG/ML VIAL SC SCH ×3 (09:47→20:43)
[2020-09-18] MEDS: Cyclobenzaprine 10 MG TAB PO PRN (13:42)
[2020-09-18] MEDS ORDERED: Iopamidol 370 76% 100 ML VIAL ONE (13:45)
[2020-09-18] MEDS ORDERED: Lactated Ringer's 1,000 ML IV SCH (14:15)
[2020-09-18 14:59] LABS: Platelet Count 1068 thou/uL (130-400)
[2020-09-18 15:02] LABS: Hemoglobin 9.2 g/dL (14.0-18.0); Mean Corpuscular HGB CONC 32.8 g/dL (32.0-36.0); Mean Corpuscular Hemoglobin 29.7 pg (27.0-31.0); Mean Corpuscular Volume 90.5 fL (78.0-98.0); RBC Distribution Width 14.1 % (11.5-14.5); Red Blood Cell (RBC) Count 3.11 mill/uL (4.70-6.10)
[2020-09-18 15:15] LABS: Band 12 % (5-11); Lymphocytes 5 % (21-51); MDiff Complete? YES; Monocytes 7 % (0-10); Neutrophil 76 % (42-75); Platelet Morphology Comment Appears Increased; Polychromasia SLIGHT = 2-3 cells (100X) (0-2/hpf); Vacuoles SLIGHT; White Blood Cell (WBC) Count 29.8 thou/uL (4.8-10.8)
[2020-09-18] MEDS ORDERED: Sodium Bicarb 50 MEQ/50 ML Abboject 8.4% SYRINGE IVP SCH (15:20)
[2020-09-18] MEDS ORDERED: Acetylcysteine 20% 200 MG/ML 30 ML VIAL PO SCH ×3 (15:30→21:00)
[2020-09-18] MEDS ORDERED: Morphine 4 MG/ML VIAL SLOW IVP SCH ×2 (15:45→15:46)
[2020-09-18] MEDS ORDERED: Calcium Chloride 1 GM/10 ML Abboject SYRINGE IVP SCH (15:45)
[2020-09-18] MEDS ORDERED: Morphine 4 MG/ML VIAL SLOW IVP PRN (15:47)
[2020-09-18 15:54] LABS: Hemoglobin 8.7 g/dL (14.0-18.0); Mean Corpuscular HGB CONC 33.2 g/dL (32.0-36.0); Mean Corpuscular Hemoglobin 29.8 pg (27.0-31.0); Mean Corpuscular Volume 89.9 fL (78.0-98.0); Platelet Count 1143 thou/uL (130-400); Red Blood Cell (RBC) Count 2.92 mill/uL (4.70-6.10); White Blood Cell (WBC) Count 31.5 thou/uL (4.8-10.8)
[2020-09-18] MEDS ORDERED: HYDROmorphone 10 mg/100 ml CADD IVPB PRN (15:59)
[2020-09-18] MEDS ORDERED: Naloxone HCl 0.4 mg/ml Vial IV PRN (15:59)
[2020-09-18] MEDS ORDERED: diphenhydrAMINE 50 MG/ML VIAL IVP PRN (15:59)
[2020-09-18] MEDS ORDERED: Communication Order-Pharmacy FS SCH (16:00)
[2020-09-18 16:10] LABS: Actual Bicarbonate (HCO3a) 23.8 mEq/L (22-28); Base Excess (BEa) 1.2 mEq/L (-2.0 to +3.0); CO2 Tension 29.9 mmHg (35.0-45.0); Calcium, Ionized (arterial) 1.05 mmol/L (1.12-1.30); Carboxyhemoglobin (COHb) 0.3 gm% (0.0-3.0); Hemoglobin (Hb) 9.2 g/dL (14.0-18.0); O2 Tension (PaO2), arterial 62.9 mmHg (80.0-100.0); Potassium - ABG Lab 4.11 mmol/L (3.70-5.30); pH, Arterial 7.52 (7.35-7.45)
[2020-09-18 16:11] LABS: ALV-art Gradient 49.455 mmHg (0-20); Puncture Site RRA
[2020-09-18 16:24] LABS: Band 18 % (5-11); MDiff Complete? YES; Monocytes 5 % (0-10); Neutrophil 76 % (42-75); Platelet Morphology Comment Appears Increased; Polychromasia SLIGHT = 2-3 cells (100X) (0-2/hpf); Vacuoles SLIGHT
[2020-09-18 16:26] LABS: ALT (SGPT) 7 U/L (8-55); AST (SGOT) 30 U/L (5-34); Albumin 2.3 g/dL (3.5-5.0); Alkaline Phosphatase 271 U/L (40-110); Anion Gap 12 mmol/L (10-20); BUN (Urea Nitrogen) 27 mg/dL (8.9-20.6); Bilirubin, Total 0.9 mg/dL (0.2-1.2); Calc. Creatinine Clearance 82 mL/min (70-130); Calcium 7.4 mg/dL (7.8-10.44); Carbon Dioxide 22 mmol/L (22-29); Chloride 97 mmol/L (98-107); Globulin 3.6 g/dL (2.4-3.5); Glucose 119 mg/dL (70-105); Potassium 4.4 mmol/L (3.5-5.1); Protein, Total 5.9 g/dL (6.0-8.3); Sodium 127 mmol/L (136-145)
[2020-09-18] MEDS ORDERED: Acetylcysteine 20% 200 MG/ML 30 ML VIAL PO PRN (16:33)
[2020-09-18 16:55] LABS: INR-International Normal Ratio 1.1; PTT 36.8 sec (22.9-36.1); Prothrombin Time 14.8 sec (12.0-14.7)
[2020-09-18] MEDS: Acetaminophen 500 MG TAB PO SCH (17:22)
[2020-09-18] MEDS: Ondansetron PF 4 MG/2 ML Vial IVP PRN (18:05)
[2020-09-18] MEDS ORDERED: Dexamethasone 4 mg/ml Vial SLOW IVP SCH (20:30)
[2020-09-18] MEDS: Sodium Bicarbonate 150 MEQ in Dextrose 5% in Water 1,000 ML IV SCH (21:36)
[2020-09-18 22:44] LABS: INR-International Normal Ratio 1.1; Prothrombin Time 14.7 sec (12.0-14.7)
[2020-09-19] MEDS: Acetaminophen 500 MG TAB PO SCH ×4 (00:31→18:27)
[2020-09-19] MEDS: Dexamethasone 4 mg/ml Vial SLOW IVP SCH ×3 (03:49→14:32)
[2020-09-19 05:01] LABS: Anion Gap 15 mmol/L (10-20); BUN (Urea Nitrogen) 27 mg/dL (8.9-20.6); Calc. Creatinine Clearance 90 mL/min (70-130); Calcium 7.8 mg/dL (7.8-10.44); Carbon Dioxide 26 mmol/L (22-29); Chloride 95 mmol/L (98-107); Glucose 144 mg/dL (70-105); Phosphorus 4.5 mg/dL (2.3-4.7); Potassium 4.9 mmol/L (3.5-5.1); Sodium 131 mmol/L (136-145)
[2020-09-19 05:09] LABS: Hemoglobin 8.2 g/dL (14.0-18.0); Mean Corpuscular HGB CONC 32.9 g/dL (32.0-36.0); Mean Corpuscular Hemoglobin 30.2 pg (27.0-31.0); Mean Corpuscular Volume 91.6 fL (78.0-98.0); Mean Platelet Volume 6.2 fL (7.4-10.4); Platelet Count 968 thou/uL (130-400); RBC Distribution Width 13.5 % (11.5-14.5); Red Blood Cell (RBC) Count 2.72 mill/uL (4.70-6.10); White Blood Cell (WBC) Count 35.3 thou/uL (4.8-10.8)
[2020-09-19 05:14] LABS: Lymphocytes 3 % (21-51); MDiff Complete? YES; Monocytes 4 % (0-10); Neutrophil 93 % (42-75); Platelet Morphology Comment Appears Increased
[2020-09-19] MEDS ORDERED: Acetylcysteine 20% 200 MG/ML 30 ML VIAL PO SCH (06:00)
[2020-09-19] MEDS ORDERED: Sodium Bicarb 50 MEQ/50 ML Abboject 8.4% SYRINGE IVP SCH ×3 (06:00→07:30)
[2020-09-19] MEDS: MEROPENEM 1 GM/50 ML 1 GM in Premix Bag 1 BAG IVPB SCH ×3 (06:49→21:32)
[2020-09-19] MEDS ORDERED: Sodium Bicarbonate 150 MEQ in Dextrose 5% in Water 1,000 ML IV SCH (07:00)
[2020-09-19] MEDS: Sodium Bicarbonate 150 MEQ in Dextrose 5% in Water 1,000 ML IV SCH (07:39)
[2020-09-19] MEDS: Ascorbic Acid 500 mg Chewable Tablet PO SCH ×2 (09:52→21:34)
[2020-09-19] MEDS: Pantoprazole 40 MG VIAL IVP SCH ×2 (09:53→21:28)
[2020-09-19] MEDS: Octreotide Acetate 100 MCG/ML VIAL SC SCH ×3 (09:53→21:28)
[2020-09-19] MEDS: Saccharomyces boulardii 250 MG CAP PO SCH (09:53)
[2020-09-19] MEDS: Ferrous Sulfate 325 MG TAB PO SCH ×2 (09:53→21:34)
[2020-09-19 13:46] VITALS: BMI 25.1
[2020-09-20] MEDS: Acetaminophen 500 MG TAB PO SCH ×5 (00:24→23:43)
[2020-09-20 04:13] LABS: Anion Gap 10 mmol/L (10-20); BUN (Urea Nitrogen) 25 mg/dL (8.9-20.6); Calc. Creatinine Clearance 84 mL/min (70-130); Calcium 7.9 mg/dL (7.8-10.44); Carbon Dioxide 32 mmol/L (22-29); Chloride 95 mmol/L (98-107); Glucose 116 mg/dL (70-105); Magnesium 2.1 mg/dL (1.6-2.6); Potassium 4.3 mmol/L (3.5-5.1); Sodium 133 mmol/L (136-145)
[2020-09-20 04:21] LABS: Phosphorus 3.3 mg/dL (2.3-4.7)
[2020-09-20 04:32] LABS: Band 8 % (5-11); Hemoglobin 7.4 g/dL (14.0-18.0); Lymphocytes 5 % (21-51); MDiff Complete? YES; Mean Corpuscular HGB CONC 32.2 g/dL (32.0-36.0); Mean Corpuscular Hemoglobin 29.4 pg (27.0-31.0); Mean Corpuscular Volume 91.3 fL (78.0-98.0); Mean Platelet Volume 6.3 fL (7.4-10.4); Monocytes 1 % (0-10); Neutrophil 86 % (42-75); Platelet Count 965 thou/uL (130-400); Platelet Morphology Comment Appears Increased; RBC Distribution Width 13.6 % (11.5-14.5); White Blood Cell (WBC) Count 30.7 thou/uL (4.8-10.8)
[2020-09-20] MEDS: MEROPENEM 1 GM/50 ML 1 GM in Premix Bag 1 BAG IVPB SCH ×3 (05:24→21:32)
[2020-09-20] MEDS: Octreotide Acetate 100 MCG/ML VIAL SC SCH ×3 (09:12→21:24)
[2020-09-20] MEDS: Pantoprazole 40 MG VIAL IVP SCH ×2 (09:12→21:25)
[2020-09-20] MEDS: Ferrous Sulfate 325 MG TAB PO SCH ×2 (09:15→21:23)
[2020-09-20] MEDS: Ascorbic Acid 500 mg Chewable Tablet PO SCH ×2 (09:15→21:24)
[2020-09-20] MEDS: Saccharomyces boulardii 250 MG CAP PO SCH (09:15)
[2020-09-20 10:22] LABS: Band 8 % (5-11); Hemoglobin 7.6 g/dL (14.0-18.0); Lymphocytes 8 % (21-51); MDiff Complete? YES; Mean Corpuscular HGB CONC 32.4 g/dL (32.0-36.0); Mean Corpuscular Hemoglobin 29.7 pg (27.0-31.0); Mean Corpuscular Volume 91.7 fL (78.0-98.0); Mean Platelet Volume 6.4 fL (7.4-10.4); Monocytes 4 % (0-10); Neutrophil 80 % (42-75); Platelet Count 904 thou/uL (130-400); Platelet Morphology Comment Appears Increased; Polychromasia SLIGHT = 2-3 cells (100X) (0-2/hpf); RBC Distribution Width 13.7 % (11.5-14.5); Red Blood Cell (RBC) Count 2.55 mill/uL (4.70-6.10); White Blood Cell (WBC) Count 26.6 thou/uL (4.8-10.8)
[2020-09-20] MEDS: traMADol HCl 50 MG TAB PO SCH ×3 (11:53→23:42)
[2020-09-20] MEDS: Gabapentin 300 MG CAP PO SCH (21:19)
[2020-09-20] MEDS: traMADol HCl 50 MG TAB PO PRN (21:23)
[2020-09-21] MEDS: traMADol HCl 50 MG TAB PO SCH ×4 (05:27→23:19)
[2020-09-21] MEDS: Acetaminophen 500 MG TAB PO SCH ×4 (05:27→23:19)
[2020-09-21] MEDS: MEROPENEM 1 GM/50 ML 1 GM in Premix Bag 1 BAG IVPB SCH ×3 (05:28→21:00)
[2020-09-21 06:16] LABS: #Eosinphils 0.1 thou/uL (0.0-0.7); #Lymphocytes 1.8 thou/uL (1.20-3.40); #Neutrophils 15.3 thou/uL (1.40-6.50); %Basophils 0.1 % (0.0-1.0); %Eosinophils 0.3 % (0.0-10.0); %Monocytes 5.3 % (0.0-10.0); %Neutrophils 84.4 % (42.0-75.0); Hemoglobin 7.5 g/dL (14.0-18.0); Mean Corpuscular HGB CONC 32.9 g/dL (32.0-36.0); Mean Corpuscular Hemoglobin 29.9 pg (27.0-31.0); Mean Corpuscular Volume 90.9 fL (78.0-98.0); Mean Platelet Volume 6.2 fL (7.4-10.4); Platelet Count 927 thou/uL (130-400); Red Blood Cell (RBC) Count 2.51 mill/uL (4.70-6.10); White Blood Cell (WBC) Count 18.2 thou/uL (4.8-10.8)
[2020-09-21 06:32] LABS: Anion Gap 13 mmol/L (10-20); BUN (Urea Nitrogen) 22 mg/dL (8.9-20.6); Calc. Creatinine Clearance 89 mL/min (70-130); Calcium 7.4 mg/dL (7.8-10.44); Carbon Dioxide 26 mmol/L (22-29); Chloride 98 mmol/L (98-107); Glucose 104 mg/dL (70-105); Phosphorus 1.7 mg/dL (2.3-4.7); Potassium 4.4 mmol/L (3.5-5.1); Sodium 133 mmol/L (136-145)
[2020-09-21] MEDS: Saccharomyces boulardii 250 MG CAP PO SCH (08:58)
[2020-09-21] MEDS: Ferrous Sulfate 325 MG TAB PO SCH ×2 (08:59→20:16)
[2020-09-21] MEDS: Gabapentin 300 MG CAP PO SCH ×2 (08:59→20:16)
[2020-09-21] MEDS: Ascorbic Acid 500 mg Chewable Tablet PO SCH ×2 (08:59→20:16)
[2020-09-21] MEDS: Pantoprazole 40 MG VIAL IVP SCH ×2 (09:00→20:17)
[2020-09-21] MEDS: Octreotide Acetate 100 MCG/ML VIAL SC SCH ×3 (11:23→20:15)
[2020-09-21] MEDS ORDERED: Sodium Phosphate 15 MMOL in Sodium Chloride 0.9% 250 ML 250 ML IVPB SCH (11:30)
[2020-09-22] MEDS: Acetaminophen 500 MG TAB PO SCH ×3 (05:13→17:23)
[2020-09-22] MEDS: MEROPENEM 1 GM/50 ML 1 GM in Premix Bag 1 BAG IVPB SCH ×3 (05:13→21:29)
[2020-09-22] MEDS: traMADol HCl 50 MG TAB PO SCH ×3 (05:14→17:22)
[2020-09-22] MEDS: Saccharomyces boulardii 250 MG CAP PO SCH (08:32)
[2020-09-22] MEDS: Gabapentin 300 MG CAP PO SCH ×2 (08:33→21:26)
[2020-09-22] MEDS: Ferrous Sulfate 325 MG TAB PO SCH ×2 (08:33→21:25)
[2020-09-22] MEDS: Pantoprazole 40 MG VIAL IVP SCH ×2 (08:34→21:25)
[2020-09-22] MEDS: Ascorbic Acid 500 mg Chewable Tablet PO SCH ×2 (08:34→21:25)
[2020-09-22] MEDS: Octreotide Acetate 100 MCG/ML VIAL SC SCH ×3 (10:13→21:28)
[2020-09-22] MEDS ORDERED: Morphine 4 MG/ML VIAL ONE (11:55)
[2020-09-22] MEDS ORDERED: Morphine 4 MG/ML VIAL SLOW IVP SCH (12:00)
[2020-09-23] MEDS: traMADol HCl 50 MG TAB PO SCH ×5 (00:12→23:40)
[2020-09-23] MEDS: Acetaminophen 500 MG TAB PO SCH ×5 (00:12→23:39)
[2020-09-23] MEDS: MEROPENEM 1 GM/50 ML 1 GM in Premix Bag 1 BAG IVPB SCH ×3 (05:40→21:28)
[2020-09-23] MEDS: Ascorbic Acid 500 mg Chewable Tablet PO SCH ×2 (09:33→21:29)
[2020-09-23] MEDS: Ferrous Sulfate 325 MG TAB PO SCH ×2 (09:33→21:29)
[2020-09-23] MEDS: Octreotide Acetate 100 MCG/ML VIAL SC SCH ×3 (09:34→21:43)
[2020-09-23] MEDS: Gabapentin 300 MG CAP PO SCH ×2 (09:34→21:29)
[2020-09-23] MEDS: Saccharomyces boulardii 250 MG CAP PO SCH (09:35)
[2020-09-23] MEDS: Pantoprazole 40 MG VIAL IVP SCH ×2 (09:35→21:29)
[2020-09-24] MEDS: traMADol HCl 50 MG TAB PO SCH (06:13)
[2020-09-24] MEDS: Acetaminophen 500 MG TAB PO SCH ×3 (06:13→18:27)
[2020-09-24] MEDS: MEROPENEM 1 GM/50 ML 1 GM in Premix Bag 1 BAG IVPB SCH ×3 (06:14→21:24)
[2020-09-24] MEDS: Ascorbic Acid 500 mg Chewable Tablet PO SCH ×2 (08:49→21:20)
[2020-09-24] MEDS: Gabapentin 300 MG CAP PO SCH ×2 (08:49→21:20)
[2020-09-24] MEDS: Ferrous Sulfate 325 MG TAB PO SCH ×2 (08:49→21:20)
[2020-09-24] MEDS: Pantoprazole 40 MG VIAL IVP SCH ×2 (08:50→21:23)
[2020-09-24] MEDS: Saccharomyces boulardii 250 MG CAP PO SCH (08:50)
[2020-09-24 10:02] LABS: #Basophils 0.1 thou/uL (0.0-0.2); #Eosinphils 0.2 thou/uL (0.0-0.7); #Lymphocytes 3.2 thou/uL (1.20-3.40); #Monocytes 1.2 thou/uL (0.11-0.59); #Neutrophils 9.4 thou/uL (1.40-6.50); %Basophils 0.8 % (0.0-1.0); %Eosinophils 1.4 % (0.0-10.0); %Lymphocytes 22.7 % (21.0-51.0); %Monocytes 8.3 % (0.0-10.0); %Neutrophils 66.9 % (42.0-75.0); Hemoglobin 7.8 g/dL (14.0-18.0); Mean Corpuscular HGB CONC 32.8 g/dL (32.0-36.0); Mean Corpuscular Hemoglobin 29.9 pg (27.0-31.0); Mean Corpuscular Volume 91.3 fL (78.0-98.0); Mean Platelet Volume 6.4 fL (7.4-10.4); Platelet Count 706 thou/uL (130-400); RBC Distribution Width 14.1 % (11.5-14.5); Red Blood Cell (RBC) Count 2.61 mill/uL (4.70-6.10)
[2020-09-24] MEDS: Octreotide Acetate 100 MCG/ML VIAL SC SCH ×3 (10:04→21:21)
[2020-09-24] MEDS ORDERED: traMADol HCl 50 MG TAB PO PRN ×2 (10:09→10:27)
[2020-09-24 10:21] LABS: Anion Gap 10 mmol/L (10-20); BUN (Urea Nitrogen) 18 mg/dL (8.9-20.6); Calc. Creatinine Clearance 87 mL/min (70-130); Calcium 7.5 mg/dL (7.8-10.44); Carbon Dioxide 28 mmol/L (22-29); Chloride 95 mmol/L (98-107); Glucose 120 mg/dL (70-105); Phosphorus 2.9 mg/dL (2.3-4.7); Potassium 3.9 mmol/L (3.5-5.1); Sodium 129 mmol/L (136-145)
[2020-09-25] MEDS: Acetaminophen 500 MG TAB PO SCH ×4 (00:28→17:26)
[2020-09-25] MEDS ORDERED: Acetylcysteine 20% 200 MG/ML 30 ML VIAL PO SCH ×2 (06:00→12:00)
[2020-09-25] MEDS ORDERED: Sodium Bicarb 50 MEQ/50 ML Abboject 8.4% SYRINGE IVP SCH (06:00)
[2020-09-25] MEDS: MEROPENEM 1 GM/50 ML 1 GM in Premix Bag 1 BAG IVPB SCH ×3 (06:10→21:43)
[2020-09-25] MEDS: Saccharomyces boulardii 250 MG CAP PO SCH (08:15)
[2020-09-25] MEDS: Pantoprazole 40 MG VIAL IVP SCH ×2 (08:15→21:41)
[2020-09-25] MEDS: Ferrous Sulfate 325 MG TAB PO SCH ×2 (08:15→21:42)
[2020-09-25] MEDS: Ascorbic Acid 500 mg Chewable Tablet PO SCH ×2 (08:16→21:41)
[2020-09-25] MEDS: Gabapentin 300 MG CAP PO SCH ×2 (08:16→21:41)
[2020-09-25] MEDS: Ondansetron PF 4 MG/2 ML Vial IVP PRN (08:16)
[2020-09-25] MEDS ORDERED: Iopamidol-370 76% 500 ML 1 ML ONE (09:07)
[2020-09-25] MEDS: Octreotide Acetate 100 MCG/ML VIAL SC SCH ×3 (09:29→21:40)
[2020-09-25] MEDS ORDERED: Morphine 2 MG/ML VIAL SLOW IVP SCH (11:30)
[2020-09-25] MEDS ORDERED: Sodium Bicarbonate 150 MEQ in Dextrose 5% in Water 850 ML IV SCH (12:00)
[2020-09-26] MEDS: Acetaminophen 500 MG TAB PO SCH ×4 (00:36→17:29)
[2020-09-26 05:28] LABS: Anion Gap 11 mmol/L (10-20); BUN (Urea Nitrogen) 22 mg/dL (8.9-20.6); Calc. Creatinine Clearance 82 mL/min (70-130); Calcium 7.6 mg/dL (7.8-10.44); Carbon Dioxide 29 mmol/L (22-29); Chloride 93 mmol/L (98-107); Glucose 122 mg/dL (70-105); Phosphorus 2.5 mg/dL (2.3-4.7); Potassium 4.3 mmol/L (3.5-5.1); Sodium 129 mmol/L (136-145)
[2020-09-26] MEDS: MEROPENEM 1 GM/50 ML 1 GM in Premix Bag 1 BAG IVPB SCH ×3 (05:35→22:06)
[2020-09-26 05:36] LABS: Band 4 % (5-11); Eosinophils 2 % (0-10); Hemoglobin 7.2 g/dL (14.0-18.0); Lymphocytes 18 % (21-51); MDiff Complete? YES; Mean Corpuscular HGB CONC 32.7 g/dL (32.0-36.0); Mean Corpuscular Hemoglobin 29.7 pg (27.0-31.0); Mean Corpuscular Volume 90.9 fL (78.0-98.0); Mean Platelet Volume 6.6 fL (7.4-10.4); Monocytes 10 % (0-10); Neutrophil 66 % (42-75); Platelet Count 750 thou/uL (130-400); Platelet Morphology Comment Appears Increased; RBC Distribution Width 14.2 % (11.5-14.5); Red Blood Cell (RBC) Count 2.43 mill/uL (4.70-6.10); Toxic Granulation SLIGHT; White Blood Cell (WBC) Count 17.5 thou/uL (4.8-10.8)
[2020-09-26] MEDS: traMADol HCl 50 MG TAB PO PRN (05:41)
[2020-09-26] MEDS: Ascorbic Acid 500 mg Chewable Tablet PO SCH ×2 (08:23→22:07)
[2020-09-26] MEDS: Saccharomyces boulardii 250 MG CAP PO SCH (08:23)
[2020-09-26] MEDS: Ferrous Sulfate 325 MG TAB PO SCH ×2 (08:23→22:07)
[2020-09-26] MEDS: Gabapentin 300 MG CAP PO SCH ×2 (08:24→22:07)
[2020-09-26] MEDS: Polyethylene Glycol 3350 17 GM Packet PO SCH (08:25)
[2020-09-26] MEDS: Octreotide Acetate 100 MCG/ML VIAL SC SCH ×3 (08:26→22:07)
[2020-09-26] MEDS: Pantoprazole 40 MG VIAL IVP SCH ×2 (08:28→22:07)
[2020-09-26] MEDS ORDERED: Sodium Phosphate 30 MMOL in Sodium Chloride 0.9% 250 ML 250 ML IVPB SCH (09:00)
[2020-09-26] MEDS: Sodium Chloride 1 GM TAB PO SCH (22:07)
[2020-09-27] MEDS: Acetaminophen 500 MG TAB PO SCH ×3 (00:47→14:44)
[2020-09-27] MEDS: MEROPENEM 1 GM/50 ML 1 GM in Premix Bag 1 BAG IVPB SCH (05:44)
[2020-09-27] MEDS: Pantoprazole 40 MG VIAL IVP SCH (09:56)
[2020-09-27] MEDS: Gabapentin 300 MG CAP PO SCH (09:56)
[2020-09-27] MEDS: Ascorbic Acid 500 mg Chewable Tablet PO SCH (09:57)
[2020-09-27] MEDS: Saccharomyces boulardii 250 MG CAP PO SCH (09:57)
[2020-09-27] MEDS: Octreotide Acetate 100 MCG/ML VIAL SC SCH ×2 (09:57→14:45)
[2020-09-27] MEDS: Ferrous Sulfate 325 MG TAB PO SCH (09:57)
[2020-09-27] MEDS: Sodium Chloride 1 GM TAB PO SCH (09:58)
[2020-09-27] MEDS: Polyethylene Glycol 3350 17 GM Packet PO SCH (09:58)
[2020-09-27] MEDS: metroNIDAZOLE 500 MG TAB PO SCH ×2 (10:07→14:44)
[2020-09-27 15:20] VITALS: BP 112/71; TEMP 99.3
== END 2020-09-27 16:10 | disposition home health service (06) | DRG 957 ==
LOC: EEVIPCON 16:49 → ERS 16:49 → SDC/OP 17:30 → CCU 20:37 → EEVIPCON 20:37 → SJJU 09-04 18:50 → IMCU/EMU 09-18 22:37 → SJJU 09-20 12:45
PROVIDERS: ADMIT Surgery; ATTEND Surgery
PROC: 0TB10ZZ Excision of Left Kidney, Open Approach (ICD-10-PCS; principal; 2020-09-01)
PROC: 0DQ60ZZ Repair Stomach, Open Approach (ICD-10-PCS; 2020-09-01)
PROC: 0W3R0ZZ Control Bleeding in Genitourinary Tract, Open Approach (ICD-10-PCS; 2020-09-01)
PROC: 30233K1 Transfusion of Nonautologous Frozen Plasma into Peripheral Vein, Percutaneous Approach (ICD-10-PCS; 2020-09-01)
PROC: 30233N1 Transfusion of Nonautologous Red Blood Cells into Peripheral Vein, Percutaneous Approach (ICD-10-PCS; 2020-09-01)
PROC: 30233R1 Transfusion of Nonautologous Platelets into Peripheral Vein, Percutaneous Approach (ICD-10-PCS; 2020-09-01)
PROC: 30233M1 Transfusion of Nonautologous Plasma Cryoprecipitate into Peripheral Vein, Percutaneous Approach (ICD-10-PCS; 2020-09-01)
PROC: 5A1945Z Respiratory Ventilation, 24-96 Consecutive Hours (ICD-10-PCS; 2020-09-01)
PROC: 0BH17EZ Insertion of Endotracheal Airway into Trachea, Via Natural or Artificial Opening (ICD-10-PCS; 2020-09-01)
PROC: 05H633Z Insertion of Infusion Device into Left Subclavian Vein, Percutaneous Approach (ICD-10-PCS; 2020-09-01)
PROC: 03HY32Z Insertion of Monitoring Device into Upper Artery, Percutaneous Approach (ICD-10-PCS; 2020-09-01)
PROC: 3E1K78Z Irrigation of Genitourinary Tract using Irrigating Substance, Via Natural or Artificial Opening (ICD-10-PCS; 2020-09-01)
PROC: 3E033XZ Introduction of Vasopressor into Peripheral Vein, Percutaneous Approach (ICD-10-PCS; 2020-09-01)
PROC: 0F9G00Z Drainage of Pancreas with Drainage Device, Open Approach (ICD-10-PCS; 2020-09-03)
PROC: 0DH67UZ Insertion of Feeding Device into Stomach, Via Natural or Artificial Opening (ICD-10-PCS; 2020-09-03)
PROC: 0W9B30Z Drainage of Left Pleural Cavity with Drainage Device, Percutaneous Approach (ICD-10-PCS; 2020-09-13)
DX: S37.092A Other injury of left kidney, initial encounter (principal); R57.8 Other shock; S36.39XA Other injury of stomach, initial encounter; J96.00 Acute respiratory failure, unspecified whether with hypoxia or hypercapnia; K85.80 Other acute pancreatitis without necrosis or infection; K66.1 Hemoperitoneum; D62 Acute posthemorrhagic anemia; N17.9 Acute kidney failure, unspecified; J98.11 Atelectasis; J90 Pleural effusion, not elsewhere classified; E87.1 Hypo-osmolality and hyponatremia; K91.89 Other postprocedural complications and disorders of digestive system; Z20.822 Contact with and (suspected) exposure to COVID-19; Z23 Encounter for immunization; R31.0 Gross hematuria; S31.134A Puncture wound of abdominal wall without foreign body, left lower quadrant without penetration into peritoneal cavity, initial encounter; D72.829 Elevated white blood cell count, unspecified; E83.42 Hypomagnesemia; D47.3 Essential (hemorrhagic) thrombocythemia; T50.8X5A Adverse effect of diagnostic agents, initial encounter; E83.39 Other disorders of phosphorus metabolism; Y83.8 Other surgical procedures as the cause of abnormal reaction of the patient, or of later complication, without mention of misadventure at the time of the procedure; W34.00XA Accidental discharge from unspecified firearms or gun, initial encounter; Z78.1 Physical restraint status
CPT/HCPCS: 31500; 36415; 36416; 36430; 36556; 36600; 36620; 51702; 71045; 72192; 74018; 74160; 74177; 80048; 80053; 81001; 82150; 82805; 83605; 83690; 83735; 84100; 85007; 85025; 85027; 85049; 85384; 85610; 85730; 86850; 86900; 86901; 87040; 87070; 87205; 88307; 90471; 90715; 93970; 94002; 94003; 94640; 96374; 96375; C9113; G0390; J0132; J0690; J1100; J1644; J2001; J2060; J2185; J2250; J2270; J2354; J2370; J2405; J2704; J2765; J3010; J3475; J3480; J3490; J7050; J7070; J7620; P9012; P9016; P9035; P9045; P9048; P9059; Q9967; S0028; U0002

== ENCOUNTER 2020-10-03 21:59 | Observation (INO) | payer BC ==
[2020-10-03] MEDS ORDERED: Dextrose 50% Abboject 50 ML SYRINGE SLOW IVP PRN (22:31)
[2020-10-03] MEDS ORDERED: Ondansetron ODT 4 MG TAB PO PRN (22:31)
[2020-10-03] MEDS ORDERED: Dextrose 5% in Water 1,000 ML IV PRN (22:31)
[2020-10-03 22:38] LABS: #Basophils 0.1 thou/uL (0.0-0.2); #Eosinphils 0.1 thou/uL (0.0-0.7); #Lymphocytes 4.8 thou/uL (1.20-3.40); #Monocytes 1.5 thou/uL (0.11-0.59); #Neutrophils 13.1 thou/uL (1.40-6.50); %Basophils 0.7 % (0.0-1.0); %Eosinophils 0.3 % (0.0-10.0); %Lymphocytes 24.6 % (21.0-51.0); %Monocytes 7.8 % (0.0-10.0); %Neutrophils 66.7 % (42.0-75.0); Hemoglobin 7.4 g/dL (14.0-18.0); Mean Corpuscular HGB CONC 33.5 g/dL (32.0-36.0); Mean Corpuscular Volume 89.6 fL (78.0-98.0); Mean Platelet Volume 5.8 fL (7.4-10.4); Platelet Count 801 thou/uL (130-400); RBC Distribution Width 14.8 % (11.5-14.5); Red Blood Cell (RBC) Count 2.47 mill/uL (4.70-6.10); White Blood Cell (WBC) Count 19.6 thou/uL (4.8-10.8)
[2020-10-03] MEDS ORDERED: Sodium Chloride 0.9% 1,000 ML IV SCH (22:45)
[2020-10-03 22:57] LABS: ALT (SGPT) 12 U/L (8-55); AST (SGOT) 30 U/L (5-34); Albumin 2.7 g/dL (3.5-5.0); Alkaline Phosphatase 143 U/L (40-110); Anion Gap 12 mmol/L (10-20); BUN (Urea Nitrogen) 15 mg/dL (8.9-20.6); Bilirubin, Total 0.4 mg/dL (0.2-1.2); Calc. Creatinine Clearance 0 mL/min (70-130); Calcium 8.2 mg/dL (7.8-10.44); Carbon Dioxide 24 mmol/L (22-29); Chloride 102 mmol/L (98-107); Globulin 3.6 g/dL (2.4-3.5); Glucose 117 mg/dL (70-105); Potassium 4.1 mmol/L (3.5-5.1); Protein, Total 6.3 g/dL (6.0-8.3); Sodium 134 mmol/L (136-145)
[2020-10-03] MEDS ORDERED: metroNIDAZOLE 500 MG TAB PO SCH (23:00)
[2020-10-04 01:28] VITALS: BMI 22.4
[2020-10-04] MEDS ORDERED: traMADol HCl 50 MG TAB PO PRN (01:53)
[2020-10-04] MEDS: Acetaminophen 500 MG TAB PO SCH ×3 (02:10→12:18)
[2020-10-04 02:14] LABS: SARS-CoV-2 NAA Rapid Test Not Detected (NotDetected)
[2020-10-04 05:35] LABS: #Basophils 0.1 thou/uL (0.0-0.2); #Eosinphils 0.1 thou/uL (0.0-0.7); #Lymphocytes 5.4 thou/uL (1.20-3.40); #Monocytes 1.3 thou/uL (0.11-0.59); #Neutrophils 10.6 thou/uL (1.40-6.50); %Basophils 0.4 % (0.0-1.0); %Eosinophils 0.3 % (0.0-10.0); %Monocytes 7.4 % (0.0-10.0); %Neutrophils 60.9 % (42.0-75.0); Hemoglobin 7.4 g/dL (14.0-18.0); Mean Corpuscular HGB CONC 32.5 g/dL (32.0-36.0); Mean Corpuscular Volume 89.2 fL (78.0-98.0); Platelet Count 716 thou/uL (130-400); RBC Distribution Width 14.5 % (11.5-14.5); Red Blood Cell (RBC) Count 2.56 mill/uL (4.70-6.10); White Blood Cell (WBC) Count 17.4 thou/uL (4.8-10.8)
[2020-10-04 05:43] LABS: Anion Gap 11 mmol/L (10-20); BUN (Urea Nitrogen) 13 mg/dL (8.9-20.6); Calc. Creatinine Clearance 84 mL/min (70-130); Calcium 7.9 mg/dL (7.8-10.44); Carbon Dioxide 24 mmol/L (22-29); Chloride 102 mmol/L (98-107); Glucose 94 mg/dL (70-105); Sodium 133 mmol/L (136-145)
[2020-10-04] MEDS ORDERED: Ferrous Sulfate 325 MG TAB PO SCH (08:00)
[2020-10-04] MEDS ORDERED: Ascorbic Acid 500 mg Chewable Tablet PO SCH (09:00)
[2020-10-04] MEDS ORDERED: Saccharomyces boulardii 250 MG CAP PO SCH (09:00)
[2020-10-04] MEDS ORDERED: Polyethylene Glycol 3350 17 GM Packet PO SCH (09:00)
[2020-10-04] MEDS ORDERED: Famotidine 20 MG TAB PO SCH (09:00)
[2020-10-04 09:30] VITALS: TEMP 99.2
[2020-10-04] MEDS ORDERED: Morphine 4 MG/ML VIAL SLOW IVP SCH (09:45)
[2020-10-04] MEDS: metroNIDAZOLE 500 MG TAB PO SCH ×2 (10:35→14:59)
[2020-10-04 13:12] LABS: Hemoglobin 8.3 g/dL (14.0-18.0); Mean Corpuscular HGB CONC 32.8 g/dL (32.0-36.0); Mean Corpuscular Hemoglobin 29.1 pg (27.0-31.0); Mean Corpuscular Volume 88.8 fL (78.0-98.0); Mean Platelet Volume 5.6 fL (7.4-10.4); Platelet Count 697 thou/uL (130-400); RBC Distribution Width 14.3 % (11.5-14.5); Red Blood Cell (RBC) Count 2.83 mill/uL (4.70-6.10); White Blood Cell (WBC) Count 17.4 thou/uL (4.8-10.8)
[2020-10-04 15:46] VITALS: BP 106/71
== END 2020-10-04 15:45 | disposition home or self-care (01) ==
LOC: ERS 21:59 → SJJU 22:31
PROVIDERS: ADMIT Surgery; ATTEND Surgery
DX: D64.9 Anemia, unspecified (principal); G89.11 Acute pain due to trauma; R53.83 Other fatigue; Z79.2 Long term (current) use of antibiotics; Z79.899 Other long term (current) drug therapy; Z88.6 Allergy status to analgesic agent; Z90.5 Acquired absence of kidney; Z20.822 Contact with and (suspected) exposure to COVID-19
CPT/HCPCS: 36415; 36430; 80048; 80053; 83690; 85025; 86850; 86900; 86901; 93005; 96374; G0378; J2270; P9016; U0002; U0005